=== PATIENT | male | born 1950 | race Caucasian/White ===

== ENCOUNTER 2016-09-10 08:52 | Emergency (ER) | payer BC, OTHER ==
[~2016-09-10] VITALS: Ht 177.8 cm; Wt 76.0 kg
[2016-09-10] MEDS ORDERED: [UNRECOGNIZED DRUG - REMARK] (09:02)
[2016-09-10] MEDS ORDERED: ASPI-1159 PO (09:02)
[2016-09-10] MEDS ORDERED: [UNRECOGNIZED DRUG - REMARK] (09:02)
[2016-09-10] MEDS ORDERED: AMIODARONE HCL 150 MG in DEXT 5% WATER 100 ML IV ONE (10:00)
[2016-09-10 10:20] LABS: BASOPHILS % 0.5 % (0.0-2.0); EOSINOPHILS % 1.4 % (0.0-5.0); HEMATOCRIT. 45.3 % (42.0-52.0); HEMOGLOBIN. 15.4 g/dL (14.0-18.0); LYMPHOCYTES % 29.7 % (20.0-50.0); MEAN CORPUSCULAR HEMOGLOBIN 30.4 pg (28.0-32.0); MEAN CORPUSCULAR VOLUME 89.2 fL (80.0-94.0); MONOCYTES % 8.7 % (2.0-8.0); NEUTROPHILS % 59.7 % (40.0-76.0); PLATELET 126 x1000/uL (130-400); RED BLOOD CELL COUNT 5.08 mill/uL (4.7-6.1); RED CELL DISTRIBUTION WIDTH 13.4 % (11.6-14.6)
[2016-09-10 10:28] LABS: INR 1.3; PARTIAL THROMBOPLASTIN TIME 35.7 sec (24.0-34.0); PROTHROMBIN TIME 14.1 sec
[2016-09-10 10:33] LABS: CARBON DIOXIDE 31 mEq/L (21-32); CHLORIDE 107 mEq/L (98-107)
[2016-09-10 10:37] LABS: TROPONIN I < 0.02 ng/mL (0.00-0.04)
[2016-09-10 11:41] VITALS: BP 105/68
== END 2016-09-10 12:55 | disposition home or self-care (01) ==
LOC: ER 12:34 → CANBEDREQ 16:16
DX: I48.91 Unspecified atrial fibrillation (principal); Z79.01 Long term (current) use of anticoagulants; Z98.49 Cataract extraction status, unspecified eye
CPT/HCPCS: 36415; 80053; 83880; 84443; 84484; 85025; 85610; 85730; 93005; 96374; 99285; J0282; Z7610; J7060

== ENCOUNTER 2016-12-13 12:07 | Day surgery (SDC) | payer OTHER ==
[~2016-12-13] VITALS: Ht 177.8 cm; Wt 77.1 kg
[~2016-12-13 12:07] MED LIST: ASPI-1159 PO; [UNRECOGNIZED DRUG - REMARK]; [UNRECOGNIZED DRUG - REMARK]
[2016-12-13 13:00] LABS: BASOPHILS % 0.7 % (0.0-2.0); EOSINOPHILS % 0.8 % (0.0-5.0); HEMATOCRIT. 43.6 % (42.0-52.0); LYMPHOCYTES % 27.1 % (20.0-50.0); MEAN CORPUSCULAR HEMOGLOBIN 30.7 pg (28.0-32.0); MEAN CORPUSCULAR VOLUME 89.4 fL (80.0-94.0); MEAN PLATELET VOLUME 11.2 fl (7.4-10.4); MONOCYTES % 8.2 % (2.0-8.0); NEUTROPHILS % 63.2 % (40.0-76.0); PLATELET 132 x1000/uL (130-400); RED BLOOD CELL COUNT 4.88 mill/uL (4.7-6.1); RED CELL DISTRIBUTION WIDTH 13.5 % (11.6-14.6)
[2016-12-13 13:12] LABS: CARBON DIOXIDE 29 mEq/L (21-32); CHLORIDE 107 mEq/L (98-107)
[2016-12-13 13:17] LABS: INR 1.2; PARTIAL THROMBOPLASTIN TIME 32.2 sec (23.4-31.0); PROTHROMBIN TIME 12.8 sec (9.4-11.6)
[2016-12-13] MEDS ORDERED: FENTANYL CITRATE/PF 50MCG/ML 2ML VIAL ONE (13:21)
[2016-12-13] MEDS ORDERED: MIDAZOLAM HCL 5 MG/5 ML VIAL ONE (13:21)
[2016-12-13] MEDS ORDERED: TETRACAINE/BENZOCAINE/BUTAMBEN 20 GM SPRAY MM ONE (13:22)
[2016-12-13] MEDS ORDERED: LIDOCAINE HCL 2% JELLY 5ML ONE (13:23)
[2016-12-13] MEDS ORDERED: PROPOFOL 200MG/20ML VIAL IV ONE (13:40)
[2016-12-13] MEDS ORDERED: ONDANSETRON HCL 4MG/2ML VIAL IV PRN (14:00)
[2016-12-13] MEDS ORDERED: MEPERIDINE HCL/PF 25MG/ML CPJ IV PRN (14:00)
[2016-12-13] MEDS ORDERED: LABETALOL HCL 20MG/4ML CARPUJECT IV PRN (14:00)
[2016-12-13] MEDS ORDERED: HYDROMORPHONE HCL/PF 2MG/ML CPJ IV PRN (14:00)
== END 2016-12-13 16:15 | disposition home or self-care (01) ==
LOC: CCL 12:07
PROVIDERS: ATTEND Specialist
DX: I48.0 Paroxysmal atrial fibrillation (principal); I25.10 Atherosclerotic heart disease of native coronary artery without angina pectoris; I11.9 Hypertensive heart disease without heart failure; E78.00 Pure hypercholesterolemia, unspecified; I34.0 Nonrheumatic mitral (valve) insufficiency
CPT/HCPCS: 36415; 80048; 85025; 85610; 85730; 92960; 93005; 93312; J3010; J2250; J2704